=== PATIENT | female | born 1980 | race Two or more races ===

== ENCOUNTER 2019-06-20 07:02 | Emergency (ER) | payer OTHER ==
[2019-06-20 07:54] VITALS: TEMP 98; BMI 26.1
--- NOTE | 2019-06-20 07:54 | PDOC ---
History of Present Illness - General Stated Complaint: DIZZINESS Time Seen by Provider: 06/20/19 07:53 - History of Present Illness Initial Comments: 06/20/19 10:12 The patient is a 38 year old female with a PMH of peripheral vertigo who presents to our ED this morning c/o dizziness. Symptoms started yesterday evening when patient suddenly stood up after laying flat. Endorses some intermittent nausea w/o vomiting; denies headache, numbness/tingling, ear ringing. States she had similar symptoms evaluated in our ED on two prior occasions, on the first occasion she was given a yellow pill with resolution of symptoms on the second occasion she was told she had a panic attack and discharged home. Previous evaluation by ENT for her symptoms. NKDA As per EMR, patient evaluated in our ED for vertigo in 2014, no provider notes in EMR. Past History - Past Medical History Allergies/Adverse Reactions: Allergies Allergy/AdvReac Type Severity Reaction Status Date / Time No Known Allergies Allergy Verified 06/20/19 07:49 Home Medications: Ambulatory Orders Meclizine HCl [Antivert -] 12.5 mg PO TID PRN #21 tablet 06/20/19 Ondansetron HCl [Zofran] 4 mg PO BID PRN #6 tablet 06/20/19 Review of Systems - Review of Systems Constitutional: No: Chills, Fever HEENTM: No: Blurred Vision, Recent change in vision Respiratory: No: Cough, Shortness of Breath Cardiac (ROS): No: Chest Pain, Lightheadedness, Palpitations, Syncope ABD/GI: Yes: Nausea. No: Vomiting : No: Burning, Dysuria *Physical Exam - Physical Exam Comments: 06/20/19 11:03 Triage VS reviewed General: awake, alert, non-toxic appearing CV: S1, S2, RRR Respiratory: CLTA B/L, no wheeze/crackle Abdomen: soft, non-tender, (+) bowel Neuro: A&O x3, CN II-XII intact, normal gait, no focal neurologic deficit noted on exam ED Treatment Course - LABORATORY CBC & Chemistry Diagram: 06/20/19 08:20 06/20/19 08:20 Medical Decision Making - Medical Decision Making 06/20/19 08:42 38 year old with acute onset of vertigo H/o vertigo w/symptomatic improvement with Meclizine VS unremarkable Viridiana Hallpike positive, no neurologic deficit noted on exam --> peripheral cause of vertigo Will trial Meclizine, Reassess. 06/20/19 09:10 S/p Meclizine patient's symptoms improved, will give 5 PO Valium reassess 06/20/19 10:12 S/p Meclizine and Valium patient symptomatically improved, ambulatory around unit Will discharge home with Meclizine Clinical Impression: BPPV I discussed the physical exam findings, ancillary test results and final diagnoses with the patient. I answered all of the patient's questions. The patient was satisfied with the care received and felt comfortable with the discharge plan and treatment plan. The patient will return to the Emergency Department with any new, persistent or worsening symptoms. *DC/Admit/Observation/Transfer Diagnosis at time of Disposition: Vertigo - Discharge Dispostion Disposition: HOME Condition at time of disposition: Good Decision to Admit order: No - Prescriptions Prescriptions: Meclizine HCl [Antivert -] 12.5 mg PO TID PRN #21 tablet PRN Reason: Dizziness Ondansetron HCl [Zofran] 4 mg PO BID PRN #6 tablet PRN Reason: Nausea - Referrals Referrals: Patric Magaña MD [Staff Physician] - - Patient Instructions Printed Discharge Instructions: DI for Vertigo, DI for Benign Paroxysmal Positional Vertigo Additional Instructions: Usted fue evaluado hoy por mareos. En harini momento est seguro para el humberto en el hogar. Hemos enviado karrie receta a finch farmacia. Por favor, tome segn las indicaciones. Nathanael un seguimiento con un mdico de odo, nariz y garganta, le hemos proporcionado karrie referencia o puede llamar a finch compaa de seguros para obtener karrie lista de mdicos. Regrese al Departamento de Emergencias por cualquier sntoma nuevo / que empeore / relacionado. You were evaluated today for dizziness. At this time you are safe for discharge home. We have sent a prescription to your pharmacy. Please take as directed. Follow-up with an Ear Nose and Throat doctor, we have provided a referral or you can call your insurance company for a list of doctors. Return to the Emergency Department for any new/worsening/concerning symptoms. - Post Discharge Activity
[2019-06-20] MEDS ORDERED: MECLIZINE HCL 25 MG TABLET (FP) PO ONE (07:59)
[2019-06-20] MEDS ORDERED: MECLIZINE HCL 25 MG TABLET (FP) ONE (08:04)
[2019-06-20] MEDS ORDERED: ACETAMINOPHEN 500 MG TABLET (FP) PO ONE (08:04)
[2019-06-20] MEDS ORDERED: ACETAMINOPHEN 325 MG TABLET (FP) ONE (08:14)
[2019-06-20] MEDS ORDERED: diazePAM CARPU-JECT 10 MG/2 ML DISP.SYRIN IVPUSH ONE (08:41)
[2019-06-20 08:46] LABS: BASO % 0.3 % (0-2.0); EOS % 0.7 % (0-4.5); HEMOGLOBIN 12.1 GM/dL (10.7-15.3); LYMPH % 12.9 % (8-40); MCH 29.6 pg (25.7-33.7); MCHC 33.6 g/dl (32.0-36.0); MEAN CELL VOLUME 88.2 fl (80-96); MEAN PLT VOLUME 9.8 fl (7.5-11.1); MONO % 7.4 % (3.8-10.2); NEUT % 78.7 % (42.8-82.8); PLATELET COUNT 233 K/MM3 (134-434); RBC 4.08 M/mm3 (3.60-5.2); RDW 15.1 % (11.6-15.6)
[2019-06-20] MEDS ORDERED: diazePAM 5 MG TABLET PO ONE (08:52)
[2019-06-20] MEDS ORDERED: diazePAM 5 MG TABLET ONE (08:54)
[2019-06-20 09:06] LABS: ALBUMIN 3.8 g/dl (3.4-5.0); BILIRUBIN,TOTAL 0.3 mg/dL (0.2-1); CALCIUM 9.5 mg/dL (8.5-10.1); CREATININE 0.8 mg/dL (0.55-1.3); POTASSIUM 3.9 mmol/L (3.5-5.1); TOT PROT 7.6 g/dl (6.4-8.2)
--- NOTE | 2019-06-20 09:23 | PDOC ---
Attending Attestation - Resident Resident Name: Italia Keita - ED Attending Attestation I have performed the following: I have examined & evaluated the patient, The case was reviewed & discussed with the resident, I agree w/resident's findings & plan - HPI HPI: 06/20/19 09:16 38y/o F h/o h/o peripheral vertigo p/w positional vertigo since last night. Pt was standing from laying position when developed sudden onset of vertigo with nausea, since then recurring with positional changes with L ear fullness but no tinnitus. no headache, just head discomfort during the vertigo. no vision change /speech change/focal deficit. no f/c/persistent ear/neck pain. same sxs in the past, treated successfully with meclizine and seen by ENT. - Physicial Exam PE: 06/20/19 09:20 vss, urine negative well appearing lying in stretcher speaking full sentences sxs exacerbated by mayra-hallpike no nystagmus, perrl, eomi, visual cruz intact TMs clear NEURO: Mental status: The patient is alert and oriented x3. Cranial nerves: Cranial nerves II through XII are intact Motor: The upper extremities are 5 over 5 in all muscle groups. The lower extremities are 5 over 5 in all muscle groups. No pronator drift. Sensation: Sensation is intact to light touch throughout. Cerebellar: Ixlqbf-auwqzo-[id number] is normal in both upper extremities. Heel-knee- nelson is normal in both lower extremities. Reflexes: 2+ and symmetric in the upper and lower extremities. Gait: Normal. Heel and toe walking are normal. Tandem gait is normal. - Medical Decision Making 06/20/19 09:23 38y/o F with exacerbation of peripheral vertigo, likely BPPV. neuro intact without red flags on history or PE. no indication for imaging trial of fluids/tylenol/meclizine reassess, dispo with ENT referral
[2019-06-20] MEDS ORDERED: ONDANSETRON 4 MG/2 ML VIAL IVPUSH ONE (10:43)
[2019-06-20] MEDS ORDERED: ONDANSETRON *ODT* 4 MG TABLET ONE (10:56)
[2019-06-20] MEDS ORDERED: ONDANSETRON 4 MG TABLET PO ONE (11:42)
[2019-06-20 14:30] VITALS: BP 119/72; PULSE 64
== END 2019-06-20 11:10 | disposition home or self-care (01) ==
LOC: JER 07:02
DX: R42 Dizziness and giddiness (principal)
CPT/HCPCS: 36415; 80053; 84703; 85025; 99283-25

== ENCOUNTER 2020-05-24 17:09 | Emergency (ER) | payer OTHER ==
[2020-05-24 17:19] VITALS: BP 130/75; PULSE 67; TEMP 97; BMI 32.3
[2020-05-24] MEDS ORDERED: KETOROLAC TROMETHAMINE 30 MG/1 ML VIAL IM ONE (17:49)
[2020-05-24] MEDS ORDERED: LIDOCAINE 5% TOPICAL PATCH TP ONE (17:50)
[2020-05-24] MEDS ORDERED: LIDOCAINE 5% TOPICAL PATCH ONE (17:54)
[2020-05-24] MEDS ORDERED: KETOROLAC TROMETHAMINE 30 MG/1 ML VIAL ONE (17:54)
[2020-05-24] MEDS ORDERED: diazePAM 5 MG TABLET PO ONE (17:57)
--- NOTE | 2020-05-24 17:57 | PDOC ---
History of Present Illness - General Chief Complaint: Pain, Acute Stated Complaint: NECK PAIN Time Seen by Provider: 05/24/20 17:24 History Source: Patient Exam Limitations: Language Barrier - History of Present Illness Initial Comments: 05/24/20 17:51 39-year-old female no past medical history presenting with 3 days of right-sided neck pain. Patient states about 3 days ago with right-sided neck pain and tightness radiating to her right shoulder. Patient states that she believes she slept in a bad position causing the pain. Patient did not take any medicine for the pain. It is worse with neck movement and on palpation. No associated systemic symptoms pt otherwise denies: fevers, chills, syncope, lightheadedness, dizziness, headaches, chest pain, shortness of breath, palpitations, back pain, abdominal pain, nausea, vomiting, diarrhea, constipation. Past History - Medical History Allergies/Adverse Reactions: Allergies Allergy/AdvReac Type Severity Reaction Status Date / Time No Known Allergies Allergy Verified 05/24/20 17:16 Home Medications: Ambulatory Orders Meclizine HCl [Antivert -] 12.5 mg PO TID PRN #21 tablet 06/20/19 Ondansetron HCl [Zofran] 4 mg PO BID PRN #6 tablet 06/20/19 Cyclobenzaprine HCl [Flexeril 10 mg] 10 mg PO BID PRN 10 Days #20 tablet 05/24/20 Ibuprofen [Ibu] 600 mg PO TID 7 Days #21 tablet 05/24/20 COPD: No - Reproductive History Is Patient Now?: No - Psycho-Social/Smoking History Smoking History: Never smoked - Substance Abuse Hx (Audit-C & DAST Scrn) How often the patient has a drink containing alcohol: Never Score: In Men: 4 or > Positive; In Women: 3 or > Positive: 0 Screen Result (Pos requires Nsg. Audit-10AR): Negative *Physical Exam - Vital Signs Last Vital Signs Temp Pulse Resp BP Pulse Ox 97 F L 67 18 130/75 100 05/24/20 17:13 05/24/20 17:13 05/24/20 17:13 05/24/20 17:13 05/24/20 17:13 - Physical Exam 05/24/20 17:53 Gen: AAOx 3, no acute distress, comfortable, no signs of respiratory distress HENT: atraumatic, normocephalic with no laceration or contusion. Nasal mucosa without erythema. Oropharynx without erythema or exudates. Mucous membranes moist. EYES: PERRL, EOM intact, conjunctiva pink NECK: supple PROM, ttp over R SCM with reproducible pain on palpation, dec ROM to lateral flexion on contralateral side 2/2 pain FROM to flexion and extension; trachea midline; no JVD, no lymphadenopathy, or thyromegaly CV: RRR no murmurs, gallops, or rubs. CHEST: CTA b/l no wheezing, rales or rhonchi ABD: +BS/ND. no TTP; soft, no rebound, no guarding EXTREMITY: no cyanosis or erythema. 2+ dorsalis pedis, posterior tibial, and radial pulse. No pedal edema; no calf swelling or tenderness SKIN: no rash, warm and dry, no diaphoresis HEME: no purpura or ecchymosis NEURO: normal speech, CN II-XII intact, sensation intact, normal gait, no cerebellar deficits MS: 5/5 strength in all extremities, FROM intact in all extremities. Medical Decision Making - Medical Decision Making 05/24/20 17:54 39 year old female with neck pain likely muscloskeltal in nature VSS Will administer toradol, lidocaine patch and valium for symptomatic relief (pt is not driving) Will reassess based on results Pt reports improvement in pain with meds Scrip sent for IBU and flexeril Patient was instructed not to drive or operate heavy machinery while taking flexeril. The patient was also instructed not to take the medication with any other sedating medications and not to drink alcohol while taking the medication. Pt appears well and is safe and stable for discharge with strict return precautions including signs and symptoms requring immediate return to the ED Supportive care instructions explained and given to pt. Reasons to return emergently to ER explained and given. Importance of follow up with PMD and other specialists as indicated stressed to pt. Pt verbalized understanding of instructions. Pt to follow up with PMD in 2 days. Discharge - Discharge Information Problems reviewed: Yes Clinical Impression/Diagnosis: Neck pain Condition: Stable Disposition: HOME - Additional Discharge Information Prescriptions: Cyclobenzaprine HCl [Flexeril 10 mg] 10 mg PO BID PRN 10 Days #20 tablet PRN Reason: Back Pain Ibuprofen [Ibu] 600 mg PO TID 7 Days #21 tablet - Follow up/Referral - Patient Discharge Instructions Patient Printed Discharge Instructions: DI for Neck Pain - Post Discharge Activity Work/Back to School Note: Back to Work
[2020-05-24] MEDS ORDERED: diazePAM 5 MG TABLET ONE (18:03)
[2020-05-24] MEDS ORDERED: LIDOCAINE PATCH REMOVAL MC SCH (22:00)
== END 2020-05-24 18:34 | disposition home or self-care (01) ==
LOC: JER 17:09 → JERFT 17:09
PROC: 3E0233Z Introduction of Anti-inflammatory into Muscle, Percutaneous Approach (ICD-10-PCS; principal; 2020-05-24)
DX: M54.2 Cervicalgia (principal)
CPT/HCPCS: 99284-25

== ENCOUNTER 2022-09-21 08:43 | Emergency (ER) | payer OTHER ==
[2022-09-21 09:12] VITALS: BP 146/90; PULSE 85; RESP 18; TEMP 99.8; BMI 32.3
[2022-09-21] MEDS ORDERED: IBUPROFEN 600 MG TABLET (FP) PO ONE (09:46)
== END 2022-09-21 12:02 | disposition home or self-care (01) ==
LOC: JER 08:43
DX: J09.X2 Influenza due to identified novel influenza A virus with other respiratory manifestations (principal); R05.1 Acute cough; R09.81 Nasal congestion; J02.9 Acute pharyngitis, unspecified
CPT/HCPCS: 0241U-QW; 71046-TC-FY; 99284-25

== ENCOUNTER 2023-04-10 00:04 | Emergency (ER) | payer OTHER ==
[2023-04-10 00:24] VITALS: BP 125/87; PULSE 69; RESP 20; TEMP 98.4; BMI 33.3
[2023-04-10] MEDS ORDERED: ACETAMINOPHEN 325 MG TABLET (FP) PO ONE (01:13)
[2023-04-10] MEDS ORDERED: ACETAMINOPHEN 325 MG TABLET (FP) ONE (01:34)
[2023-04-10 01:43] LABS: BASO % 0.3 % (0-2.0); HEMATOCRIT 39.3 % (32.4-45.2); HEMOGLOBIN 12.6 GM/dL (10.7-15.3); LYMPH % 21.4 % (8-40); MCH 28.5 pg (25.7-33.7); MEAN CELL VOLUME 88.9 fl (80-96); MEAN PLT VOLUME 10.5 fl (7.5-11.1); MONO % 7.8 % (3.8-10.2); NEUT % 69.5 % (42.8-82.8); PLATELET COUNT 222 10^3/uL (134-434); RBC 4.42 M/mm3 (3.60-5.2); RDW 15.8 % (11.6-15.6); WHITE BLOOD COUNT 8.1 K/mm3 (4.0-10.0)
[2023-04-10 02:00] LABS: POTASSIUM 4.6 mmol/L (3.5-5.1)
[2023-04-10 02:02] LABS: ALBUMIN 3.7 g/dl (3.4-5.0); BLOOD UREA NITROGEN 21.5 mg/dL (7-18); CALCIUM 9.3 mg/dL (8.5-10.1)
[2023-04-10 02:05] LABS: CREATININE 0.9 mg/dL (0.55-1.3)
[2023-04-10 02:07] LABS: BILIRUBIN,TOTAL 0.3 mg/dL (0.2-1)
[2023-04-10] MEDS ORDERED: MAG HYDROX/AL HYDROX/SIMETH 30 ML UNIT-DOSE CUP PO ONE (03:15)
[2023-04-10] MEDS ORDERED: MAG HYDROX/AL HYDROX/SIMETH 30 ML UNIT-DOSE CUP ONE (03:18)
[2023-04-10] MEDS ORDERED: FAMOTIDINE 20 MG TABLET PO ONE (03:29)
[2023-04-10] MEDS ORDERED: FAMOTIDINE 20 MG TABLET ONE (03:37)
[2023-04-10] MEDS ORDERED: ONDANSETRON 4 MG/2 ML VIAL IVPUSH ONE (04:43)
[2023-04-10 04:45] LABS: EPI CELLS >36 /uL (0-25.1); HYALINE CASTS 2 /uL (0-3.1); PH,URINE 5.5 (5.0-8.0); URINE APPEARANCE CLEAR; URINE BACTERIA 795 /uL (0-1359); URINE BILIRUBIN NEGATIVE (NEGATIVE); URINE COLOR YELLOW; URINE GLUCOSE (UA) NEGATIVE (NEGATIVE); URINE KETONE TRACE (NEGATIVE); URINE LEUK ESTERASE NEGATIVE (NEGATIVE); URINE NITRITE NEGATIVE (NEGATIVE); URINE PROTEIN 1+ (NEGATIVE); URINE RBC 233 /uL (0-23.9); URINE WBC 42 /uL (0-25.8)
[2023-04-10] MEDS ORDERED: ONDANSETRON 4 MG/2 ML VIAL ONE (04:45)
== END 2023-04-10 06:55 | disposition home or self-care (01) ==
LOC: JER 00:04
PROC: 3E033GC Introduction of Other Therapeutic Substance into Peripheral Vein, Percutaneous Approach (ICD-10-PCS; principal; 2023-04-10)
DX: R07.2 Precordial pain (principal); R10.13 Epigastric pain; K52.9 Noninfective gastroenteritis and colitis, unspecified
CPT/HCPCS: 36415; 71045-TC-FY; 74177-TC; 80053; 81003; 84484; 84703; 85025; 87077; 87086; 93005; 93010; 99285-25; Q9967

== ENCOUNTER 2024-06-14 00:51 | Emergency (ER) | payer OTHER ==
[2024-06-14 01:04] VITALS: BP 144/92; PULSE 64; RESP 18; TEMP 98.9; BMI 35.6
[2024-06-14] MEDS ORDERED: ACETAMINOPHEN 325 MG TABLET (FP) ONE (01:24)
[2024-06-14] MEDS: ACETAMINOPHEN 500 MG TABLET (FP) PO ONE (01:36)
[2024-06-14] MEDS ORDERED: ONDANSETRON *ODT* 4 MG TABLET ONE (02:17)
[2024-06-14] MEDS ORDERED: LIDOCAINE 4% PATCH TP ONE (02:17)
[2024-06-14] MEDS ORDERED: FAMOTIDINE 20 MG/50 ML IVPB 20 MG/50 ML MG IVPB ONE (02:17)
[2024-06-14] MEDS: ONDANSETRON *ODT* 4 MG TABLET SL ONE (02:39)
[2024-06-14] MEDS: FAMOTIDINE 20 MG/50 ML IVPB 20 MG/50 ML MG IVPB ONE (02:39)
[2024-06-14] MEDS: LIDOCAINE 4% PATCH TP ONE (02:39)
[2024-06-14 02:53] LABS: BASO % 0.3 % (0-2.0); EOS % 0.8 % (0-4.5); HEMATOCRIT 38.5 % (32.4-45.2); HEMOGLOBIN 12.8 GM/dL (10.7-15.3); LYMPH % 17.1 % (8-40); MCH 29.5 pg (25.7-33.7); MCHC 33.1 g/dl (32.0-36.0); MEAN CELL VOLUME 88.9 fl (80-96); MEAN PLT VOLUME 9.7 fl (7.5-11.1); MONO % 9.6 % (3.8-10.2); NEUT % 72.2 % (42.8-82.8); PLATELET COUNT 195 10^3/uL (134-434); RBC 4.33 M/mm3 (3.60-5.2); RDW 16.2 % (11.6-15.6); WHITE BLOOD COUNT 6.6 K/mm3 (4.0-10.0)
[2024-06-14] MEDS ORDERED: MECLIZINE HCL 25 MG TABLET (FP) ONE (03:08)
[2024-06-14 03:13] LABS: POTASSIUM 3.6 mmol/L (3.5-5.1)
[2024-06-14 03:15] LABS: ALBUMIN 3.7 g/dl (3.4-5.0); BLOOD UREA NITROGEN 22.1 mg/dL (7-18); CALCIUM 8.8 mg/dL (8.5-10.1); MAGNESIUM 2.3 mg/dL (1.8-2.4)
[2024-06-14] MEDS: MECLIZINE HCL 25 MG TABLET (FP) PO ONE (03:16)
[2024-06-14] MEDS: SODIUM CHLORIDE 0.9% 500 ML INFUS.BAG IV ONE (03:16)
[2024-06-14 03:19] LABS: CREATININE 0.9 mg/dL (0.55-1.3)
[2024-06-14 03:20] LABS: BILIRUBIN,TOTAL 0.2 mg/dL (0.2-1); TOT PROT 7.4 g/dl (6.4-8.2)
[2024-06-14 13:05] LABS: HIV INTERPRETATION NEGATIVE (NEGATIVE)
[2024-06-14] MEDS ORDERED: LIDOCAINE PATCH REMOVAL MC SCH (22:00)
== END 2024-06-14 05:45 | disposition home or self-care (01) ==
LOC: JER 00:51
PROC: 3E033GC Introduction of Other Therapeutic Substance into Peripheral Vein, Percutaneous Approach (ICD-10-PCS; principal; 2024-06-14)
DX: R07.89 Other chest pain (principal); M54.6 Pain in thoracic spine; R42 Dizziness and giddiness; R11.2 Nausea with vomiting, unspecified
CPT/HCPCS: 36415; 71046-TC-FY; 80053; 83735; 84484; 84703; 85025; 86803; 87389; 93005; 93010; 99285-25; Q0162

== ENCOUNTER 2025-05-28 22:30 | Emergency (ER) | payer OTHER ==
[2025-05-28 22:37] VITALS: BMI 34.9
[2025-05-28] MEDS ORDERED: MECLIZINE HCL 25 MG TABLET (FP) ONE (23:22)
[2025-05-28] MEDS ORDERED: ACETAMINOPHEN INJECTION 100 ML ONE (23:22)
[2025-05-28] MEDS: ACETAMINOPHEN 1000 MG/100 ML BAG IVPB ONE (23:40)
[2025-05-28] MEDS: SODIUM CHLORIDE 0.9% 500 ML INFUS.BAG IV ONE (23:40)
[2025-05-28] MEDS: MECLIZINE HCL 25 MG TABLET (FP) PO ONE (23:40)
[2025-05-28 23:41] LABS: ABSOLUTE IMMATURE GRANULOCYTES 0.02 x10^3/uL (0.0-0.031); BASOPHILS # 0.02 x10^3/uL (0.01-0.08); EOSINOPHIL % 0.5 % (0.7-5.8); EOSINOPHILS # 0.04 x10^3/uL (0.04-0.36); MCHC 32.9 g/dl (32.2-35.5); MEAN CELL VOLUME 89.9 fl (79.4-94.8); MEAN PLT VOLUME 11.5 fl (9.4-12.3); MONOCYTE # 0.55 x10^3/uL (0.24-0.86); MONOCYTE % 7.1 % (4.7-12.5); RDW 14.1 % (12.2-17.1)
[2025-05-28 23:59] LABS: GLUCOSE,RANDOM 99.0 mg/dL (74-106); TOT PROT 7.7 g/dl (6.4-8.2)
[2025-05-29 00:02] LABS: ALK PHOS 60.0 U/L (40-150)
[2025-05-29 00:05] LABS: CREATININE 0.91 mg/dL (0.55-1.3); SGOT/AST 20.0 U/L (5-34); SGPT/ALT 17.0 U/L (0-55)
[2025-05-29 01:01] VITALS: BP 148/95; PULSE 65; RESP 18; TEMP 97.7
[2025-05-29 01:26] LABS: CO2 25.0 mmol/L (21-32)
[2025-05-29 02:02] LABS: HCV DIAGNOSTIC IN-HOUSE W/RFLX NON-REACTIVE (NONREACTIVE); HIV INTERPRETATION NEGATIVE (NEGATIVE)
== END 2025-05-29 01:49 | disposition home or self-care (01) ==
LOC: JER 22:30
PROC: 3E033NZ Introduction of Analgesics, Hypnotics, Sedatives into Peripheral Vein, Percutaneous Approach (ICD-10-PCS; principal; 2025-05-28)
DX: R42 Dizziness and giddiness (principal); R11.0 Nausea
CPT/HCPCS: 36415; 80053; 83735; 84484; 84703; 85025; 86803; 87389; 93005; 93010; 99284-25